=== PATIENT | male | born 1980 | race Caucasian/White ===

== ENCOUNTER 2020-08-05 19:08 | Emergency (ER) | payer SELFPAY ==
[~2020-08-05] VITALS: Ht 144.8 cm; Wt 69.9 kg
[2020-08-05 19:16] VITALS: BP 157/85; Ht 144.8 cm; Wt 69.9 kg
[2020-08-05] MEDS ORDERED: VALTREX1 GM PO (20:17)
[2020-08-05] MEDS ORDERED: ULTRAM50 MG PO (20:17)
== END 2020-08-05 20:25 | disposition home or self-care (01) ==
LOC: ED 19:08
DX: B02.9 Zoster without complications (principal)